=== PATIENT | male | born 1940 | race Asian ===

== ENCOUNTER → 2017-01-05 | Outpatient (CLI) | payer MEDICARE ==
[2017-01-05 08:06] LABS: BLOOD UREA NITROGEN 33 mg/dL (7-18)
== END | disposition home or self-care (01) ==
LOC: LAB 07:40
PROVIDERS: ATTEND Internal Medicine
DX: Z12.5 Encounter for screening for malignant neoplasm of prostate (principal); E11.69 Type 2 diabetes mellitus with other specified complication; K21.9 Gastro-esophageal reflux disease without esophagitis; N28.9 Disorder of kidney and ureter, unspecified; I10 Essential (primary) hypertension; E78.1 Pure hyperglyceridemia; K80.80 Other cholelithiasis without obstruction; M10.00 Idiopathic gout, unspecified site; K92.1 Melena; F43.20 Adjustment disorder, unspecified
CPT/HCPCS: 36415; 80048; 83036

== ENCOUNTER → 2017-01-23 | Outpatient (CLI) | payer MEDICARE | END | disposition home or self-care (01) | LOC: CFH 07:20 | PROVIDERS: ATTEND Internal Medicine | DX: N28.1 Cyst of kidney, acquired (principal); I10 Essential (primary) hypertension; E11.69 Type 2 diabetes mellitus with other specified complication; K21.9 Gastro-esophageal reflux disease without esophagitis | CPT/HCPCS: 76770 ==

== ENCOUNTER → 2017-07-06 | Outpatient (CLI) | payer MEDICARE ==
[2017-07-06 07:23] LABS: HEMATOCRIT 42.9 % (39.2-51.8); HEMOGLOBIN 14.4 g/dL (13.7-18.0)
[2017-07-06 07:35] LABS: BLOOD UREA NITROGEN 37 mg/dL (7-18)
[2017-07-06 07:46] LABS: ASPARTATE AMINO TRANSFERASE 18 U/L (15-37)
== END | disposition home or self-care (01) ==
LOC: LAB 06:52
PROVIDERS: ATTEND Internal Medicine
DX: Z13.220 Encounter for screening for lipoid disorders (principal); Z12.5 Encounter for screening for malignant neoplasm of prostate; Z12.11 Encounter for screening for malignant neoplasm of colon; I10 Essential (primary) hypertension; E11.69 Type 2 diabetes mellitus with other specified complication; M10.00 Idiopathic gout, unspecified site; E78.1 Pure hyperglyceridemia; K92.1 Melena; K80.80 Other cholelithiasis without obstruction; K21.9 Gastro-esophageal reflux disease without esophagitis; F43.20 Adjustment disorder, unspecified; N28.9 Disorder of kidney and ureter, unspecified; R97.20 Elevated prostate specific antigen [PSA]
CPT/HCPCS: 36415; 80053; 80061; 83036; 84153; 84443; 84550; 85025; G0103

== ENCOUNTER → 2018-01-12 | Outpatient (CLI) | payer MEDICARE ==
[2018-01-12 08:03] LABS: BASOPHILS % (AUTO) 1 % (0-1); EOSINOPHILS # (AUTO) 0.36 x10^3/uL (0-0.4); EOSINOPHILS % (AUTO) 5 % (1-7); LYMPHOCYTES % (AUTO) 27 % (22-44); MD NO; MEAN CORPUSCULAR HEMOGLOBIN 28.8 pg (27.5-34.5); MEAN CORPUSCULAR HGB CONC 33.2 g/dL (33.2-36.2); MEAN CORPUSCULAR VOLUME 86.8 fL (81-97); MEAN PLATELET VOLUME 6.3 fL (7.4-10.4); MONOCYTES % (AUTO) 7 % (2-9); NEUTROPHILS # (AUTO) 4.93 x10^3/uL (1.8-6.8); NEUTROPHILS % (AUTO) 60 % (42-75); PLATELET COUNT 327 x10^3/uL (130-400); RED BLOOD COUNT 4.99 x10^6/uL (4.38-5.82); RED CELL DISTRIBUTION WIDTH 14.1 % (9.4-14.8)
[2018-01-12 08:14] LABS: ALBUMIN 3.4 g/dL (3.4-5.0); ANION GAP 8 mmol/L (5-15); CALCIUM 9.2 mg/dL (8.5-10.1); CHLORIDE 106 mmol/L (98-107)
[2018-01-12 08:29] LABS: ALANINE AMINOTRANSFERASE 40 U/L (12-78); ALKALINE PHOSPHATASE 87 U/L (45-117); BILIRUBIN,TOTAL 0.4 mg/dL (0.2-1.0); CHOL/HDL RATIO 3.6; CHOLESTEROL, TOTAL 150 mg/dL (140-239); HDL CHOL % 28 % (26-37); HDL CHOLESTEROL (DIRECT) 42 mg/dL (40-60); LDL CHOLESTEROL,CALCULATED 71 mg/dL (54-169); LDL/HDL RATIO 1.7 (0.5-3.0); TOTAL PROTEIN 8.4 g/dL (6.4-8.2); TRIGLYCERIDES 186 mg/dL (50-200); VLDL CHOLESTEROL 37 mg/dL (0-25)
[2018-01-12 08:34] LABS: HEMOGLOBIN A1C 6.3 % (4.2-6.3)
== END | disposition home or self-care (01) ==
LOC: LAB 07:33
PROVIDERS: ATTEND Internal Medicine
DX: Z13.220 Encounter for screening for lipoid disorders (principal); Z12.11 Encounter for screening for malignant neoplasm of colon; Z12.5 Encounter for screening for malignant neoplasm of prostate; I10 Essential (primary) hypertension; E11.69 Type 2 diabetes mellitus with other specified complication; M10.00 Idiopathic gout, unspecified site; E78.1 Pure hyperglyceridemia; K92.1 Melena; K80.80 Other cholelithiasis without obstruction; F43.20 Adjustment disorder, unspecified; N28.9 Disorder of kidney and ureter, unspecified
CPT/HCPCS: 36415; 80053; 80061; 83036; 84443; 85025

== ENCOUNTER → 2018-01-28 | Outpatient (CLI) | payer MEDICARE | END | disposition home or self-care (01) | LOC: CFH 07:00 | PROVIDERS: ATTEND Internal Medicine | DX: K80.20 Calculus of gallbladder without cholecystitis without obstruction (principal); K76.0 Fatty (change of) liver, not elsewhere classified; K80.80 Other cholelithiasis without obstruction; K92.1 Melena; N28.1 Cyst of kidney, acquired; I10 Essential (primary) hypertension; E11.69 Type 2 diabetes mellitus with other specified complication; M10.00 Idiopathic gout, unspecified site; E78.1 Pure hyperglyceridemia; K21.9 Gastro-esophageal reflux disease without esophagitis; F43.20 Adjustment disorder, unspecified; N28.9 Disorder of kidney and ureter, unspecified | CPT/HCPCS: 76700 ==

== ENCOUNTER → 2020-06-16 | Outpatient (CLI) | payer MEDICARE | END | disposition home or self-care (01) | LOC: CFH 08:59 | PROVIDERS: ATTEND Internal Medicine | DX: K80.20 Calculus of gallbladder without cholecystitis without obstruction (principal); K76.0 Fatty (change of) liver, not elsewhere classified; K82.8 Other specified diseases of gallbladder | CPT/HCPCS: 76700 ==

== ENCOUNTER 2021-07-01 07:11 | Outpatient (CLI) | payer MEDICARE ==
[2021-07-01] MEDS ORDERED: AMLO-150 PO (07:40)
[2021-07-01] MEDS ORDERED: SIMV20TA19 PO (07:40)
[2021-07-01] MEDS ORDERED: GLIP5TAB10 PO (07:40)
[2021-07-01] MEDS ORDERED: MULT-658 PO (07:40)
[2021-07-01] MEDS ORDERED: ALLO100T30 PO (07:40)
[2021-07-01 08:16] LABS: ALANINE AMINOTRANSFERASE 34 U/L (12-78); ALBUMIN 2.8 g/dL (3.4-5.0); ANION GAP 10 mmol/L (5-15); CALCIUM 9.1 mg/dL (8.5-10.1); CHLORIDE 109 mmol/L (98-107); CREATININE 5.61 mg/dL (0.7-1.3)
[2021-07-01 08:18] LABS: ALKALINE PHOSPHATASE 102 U/L (45-117); BILIRUBIN,TOTAL 0.3 mg/dL (0.2-1.0); TOTAL PROTEIN 7.8 g/dL (6.4-8.2)
== END 2021-07-01 23:59 | disposition home or self-care (01) ==
LOC: STAR 07:11
PROVIDERS: ATTEND Surgery
DX: Z01.818 Encounter for other preprocedural examination (principal); K81.1 Chronic cholecystitis
CPT/HCPCS: 36415; 80053; 93005

== ENCOUNTER 2021-07-05 12:21 | Day surgery (SDC) | payer MEDICARE ==
[~2021-07-05] VITALS: Ht 157.5 cm; Wt 62.2 kg
[~2021-07-05 12:21] MED LIST: ALLO100T30 PO; AMLO-150 PO; BUPIVACAINE/PF 0.5% ONE; GLIP5TAB10 PO; MULT-658 PO; SIMV20TA19 PO
[2021-07-05] MEDS ORDERED: CHLORHEXIDINE 15 ML UDC PO ONE (13:00)
[2021-07-05] MEDS ORDERED: LACTATED RINGERS 1,000 ML IV SCH (13:00)
[2021-07-05 13:01] VITALS: BP 164/85
[2021-07-05] MEDS ORDERED: CHLORHEXIDINE 15 ML UDC ONE (13:07)
[2021-07-05] MEDS ORDERED: FENTANYL PF 250 MCG/5ML ONE ×2 (13:44→14:24)
[2021-07-05] MEDS ORDERED: PROPOFOL 10 MG/ML, 20ML ONE (13:45)
[2021-07-05] MEDS ORDERED: DEXAMETHASONE 4 MG/ML, 1ML ONE (13:45)
[2021-07-05] MEDS ORDERED: GLYCOPYRROLATE 0.2MG/1ML, 5ML ONE (13:45)
[2021-07-05] MEDS ORDERED: SUCCINYLCHOLINE 20 MG/ML, 10ML ONE (13:45)
[2021-07-05] MEDS ORDERED: ONDANSETRON 2MG/ML, 2ML ONE (13:45)
[2021-07-05] MEDS ORDERED: CEFAZOLIN 1,000 MG ONE (13:45)
[2021-07-05] MEDS ORDERED: NEOSTIGMINE 1 MG/ML, 10ML ONE (13:45)
[2021-07-05] MEDS ORDERED: ROCURONIUM 10MG/ML,5ML ONE (13:45)
[2021-07-05] MEDS ORDERED: BUPIVACAINE/PF-EPI 0.5% 1:200K INFIL ONE (14:45)
[2021-07-05] MEDS ORDERED: HYDROcodone/APAP 7.5-325MG/15ML UDC ONE (15:43)
[2021-07-05] MEDS: HYDROcodone/APAP 7.5-325MG/15ML UDC PO PRN ×2 (15:45→17:02)
[2021-07-05] MEDS ORDERED: ONDANSETRON 2MG/ML, 2ML IVPush PRN (16:00)
[2021-07-05] MEDS ORDERED: FENTANYL PF 100 MCG/2ML IV PRN (16:00)
[2021-07-05] MEDS ORDERED: HYDROmorphone 1 MG/ML, 1ML INJ IVPush PRN (16:00)
== END 2021-07-05 18:05 | disposition home or self-care (01) ==
LOC: OUT 12:21
PROVIDERS: ATTEND Surgery
DX: K80.10 Calculus of gallbladder with chronic cholecystitis without obstruction (principal); I12.9 Hypertensive chronic kidney disease with stage 1 through stage 4 chronic kidney disease, or unspecified chronic kidney disease; E11.22 Type 2 diabetes mellitus with diabetic chronic kidney disease; N18.4 Chronic kidney disease, stage 4 (severe); M10.9 Gout, unspecified; Z87.891 Personal history of nicotine dependence; Z20.822 Contact with and (suspected) exposure to COVID-19; Z79.84 Long term (current) use of oral hypoglycemic drugs; Z79.899 Other long term (current) drug therapy; Z98.890 Other specified postprocedural states
CPT/HCPCS: 47562; 82962; 87635; 88304; J0330; J0690; J1100; J2405; J2704; J2710; J3010; J7120